=== PATIENT | female | born 1960 | race Caucasian/White ===

== ENCOUNTER 2022-03-24 12:58 | Emergency (ER) | payer MEDICARE, OTHER ==
[~2022-03-24 12:58] MED LIST: ASPIRIN EC81 MG PO; AUGMENTIN 875-1 EACH PO; BACTRIM DS TAB1 EACH PO; FELDENE10 MG PO; IBUPROFEN600 MG PO; NORCO 7.5-3251 EACH PO; PYRIDIUM100 MG PO; ZOFRAN4 MG PO
[2022-03-24 13:58] LABS: HEMOGLOBIN 18.4 gm/dl (12.3-15.3); RED BLOOD COUNT 5.63 M/UL (4.00-5.10); WHITE BLOOD COUNT 12.6 K/UL (4.5-11.0)
[2022-03-24 14:40] LABS: BUN/CREATININE RATIO 19 (0-10)
== END 2022-03-24 16:22 | disposition home or self-care (01) ==
LOC: ER1 12:58
PROVIDERS: Physician Assistant
DX: M79.601 Pain in right arm (principal); I10 Essential (primary) hypertension; E11.9 Type 2 diabetes mellitus without complications; F17.210 Nicotine dependence, cigarettes, uncomplicated; Z88.8 Allergy status to other drugs, medicaments and biological substances
CPT/HCPCS: 80053; 82550; 82553; 84484; 85025; 93005; 96374; 99284; J1885